=== PATIENT | female | born 1955 | race Hispanic/Latino ===

== ENCOUNTER 2017-12-14 15:56 | Emergency (ER) | payer OTHER ==
--- NOTE | 2017-12-14 17:07 | RAD ---
RIGHT HIP TWO VIEWS: 12/14/17 HISTORY: Fall. Right hip injury. FINDINGS/IMPRESSION: Mild osteoarthritic changes. Hip is held in internal rotation on both views and is somewhat abducted. No displaced fractures are apparent. If there is ongoing pain, please consider repeat imaging or CT pelvis. POS: [facility]
== END 2017-12-14 16:53 | disposition home or self-care (01) ==
LOC: NAV ERS 15:56
DX: S70.01XA Contusion of right hip, initial encounter (principal); E11.9 Type 2 diabetes mellitus without complications; E78.5 Hyperlipidemia, unspecified; I10 Essential (primary) hypertension; W18.30XA Fall on same level, unspecified, initial encounter

== ENCOUNTER 2018-09-23 11:48 | Outpatient (CLI) | payer MEDICARE ==
--- NOTE | 2018-09-23 14:05 | RAD ---
RIGHT KNEE 4 VIEWS: HISTORY: Right knee pain for months without injury. 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 IMPRESSION: Degenerative change without fracture or dislocation. POS: [facility]
== END 2018-09-23 11:49 | disposition home or self-care (01) ==
LOC: NAV RAD 11:48
PROVIDERS: ATTEND Nurse Practitioner Adult Health
DX: M25.561 Pain in right knee (principal); M17.11 Unilateral primary osteoarthritis, right knee

== ENCOUNTER 2023-04-25 17:56 | Emergency (ER) | payer OTHER ==
[2023-04-25] MEDS ORDERED: Meclizine HCl 25 MG TAB ONE (18:55)
[2023-04-25 19:09] LABS: #Eosinphils 0.1 thou/uL (0.0-0.7); #Lymphocytes 1.9 thou/uL (1.20-3.40); #Monocytes 0.6 thou/uL (0.11-0.59); #Neutrophils 4.1 thou/uL (1.40-6.50); %Basophils 0.6 % (0.0-1.0); %Eosinophils 2.2 % (0.0-10.0); %Lymphocytes 27.5 % (21.0-51.0); %Monocytes 8.9 % (0.0-10.0); %Neutrophils 60.8 % (42.0-75.0); Hematocrit 41.3 % (36.0-47.0); Hemoglobin 13.5 g/dL (12.0-16.0); Mean Corpuscular HGB CONC 32.7 g/dL (32.0-36.0); Mean Corpuscular Hemoglobin 30.3 pg (27.0-31.0); Mean Corpuscular Volume 92.7 fl (78.0-98.0); Mean Platelet Volume 10.7 fL (7.4-10.4); Platelet Count 133 10x3/uL (130-400); RBC Distribution Width 11.9 % (11.5-14.5); Red Blood Cell (RBC) Count 4.46 mill/uL (4.20-5.40); White Blood Cell (WBC) Count 6.7 10x3/uL (4.8-10.8)
[2023-04-25 19:26] LABS: ALT (SGPT) 22 U/L (8-55); AST (SGOT) 17 U/L (5-34); Albumin 3.8 g/dL (3.4-4.8); Alkaline Phosphatase 84 U/L (40-110); Anion Gap 14 mmol/L (10-20); BUN (Urea Nitrogen) 15 mg/dL (9.8-20.1); Bilirubin, Total 0.4 mg/dL (0.2-1.2); Calc. Creatinine Clearance 0 mL/min (70-130); Calcium 8.8 mg/dL (7.8-10.44); Carbon Dioxide 25 mmol/L (23-31); Chloride 102 mmol/L (98-107); Estimated GFR 86; Globulin 2.8 g/dL (2.4-3.5); Glucose 268 mg/dL (80-115); Protein, Total 6.6 g/dL (5.8-8.1); Sodium 137 mmol/L (136-145)
[2023-04-25 19:29] LABS: Bilirubin Negative (Negative); Blood, Urine Negative (Negative); Clarity Clear (Clear); Glucose, Urine (Dipstick) >=1000 mg/dL (Negative); Ketone, Urine Negative (Negative); Leukocyte Negative (Negative); Nitrite Negative (Negative); Protein, Urine (Dipstick) Negative (Neg-Trace); Urobilinogen 0.2 mg/dL (Less than 2)
[2023-04-25 19:30] LABS: Troponin I Less than 0.010 ng/mL (< 0.028)
[2023-04-25 19:34] LABS: Squamous Epithelial 0-3 HPF (0-3)
[2023-04-25] MEDS ORDERED: Acetaminophen 500 MG TAB ONE (19:57)
[2023-04-25] MEDS ORDERED: traMADol HCl 50 MG TAB ONE (20:26)
== END 2023-04-25 20:45 | disposition home or self-care (01) ==
LOC: NAV ERS 17:56
DX: N93.8 Other specified abnormal uterine and vaginal bleeding (principal); E86.9 Volume depletion, unspecified; E11.65 Type 2 diabetes mellitus with hyperglycemia; R42 Dizziness and giddiness; M25.511 Pain in right shoulder; E78.00 Pure hypercholesterolemia, unspecified; I10 Essential (primary) hypertension; Z79.899 Other long term (current) drug therapy; Z79.82 Long term (current) use of aspirin
CPT/HCPCS: 70450; 80053; 81001; 84484; 85025